=== PATIENT | male | born 1955 | race Caucasian/White ===

== ENCOUNTER 2020-02-10 11:38 | Emergency (ER) | payer MEDICARE, MEDICAID, OTHER, SELFPAY ==
--- NOTE | 2020-02-10 11:40 | ED.GENADUL_ITS ---
Discharge Plan Disposition Patient Disposition: HOME Condition: Stable Discharge Details Clinical Impression: Boxer's fracture Primary Care Provider: Cherrie Franks ED Provider: Christi Ortega Home Meds and New Rx's Prescriptions: Continued atorvastatin 40 mg tablet 40 mg PO DAILY RF: 0 morphine 30 mg Tablet Extended Release 30 mg PO BID RF: 0 omeprazole 40 mg Capsule,Delayed Release(Dr/Ec) 40 mg PO BID RF: 0 lisinopril 10 mg Tablet 5 mg PO BID RF: 0 Discharge Instructions Instructions: Boxer Fracture (ED) Additional Instructions: Rest, ice, and elevate the affected area as much as possible. Take your morphine that you have at home as needed and directed for pain. You can follow-up with an orthopedist here or at [facility] for reevaluation in the next 1 to 2 weeks. Return immediately to the emergency department if you develop any worsening or new concerning symptoms. Referrals: Spencer Park MD [ [facility] STAFF PHYSICIAN] - Discharge Data Discharge Date/Time-TO BE ENTERED AT DEPARTURE: 02/10/20 14:07 Discharge Physician: Christi Ortega Medical Decision Making 64-year-old male presents with right hand pain after fall onto his right hand 2 days ago while taking his dog out. He has edema, ecchymosis and tenderness palpation overlying right fourth and fifth metacarpals. Suspect fracture. No deformity. Neurovascular intact. He has an old right ulnar ulnar styloid abrasion and swelling which family states is not new. Patient referred for x-ray which confirms right fifth metacarpal fracture. Ulnar gutter splint placed at bedside. Daughter states he will f/u with [facility] ortho. Pt declined sling. Medical Records Medical records reviewed: Yes I reviewed the patient's medical records. Imaging Data Radiologic Study: Radiologist's impression: XR HAND RT COMPLETE CLINICAL HISTORY: fall. TECHNIQUE: 2D digital imaging was performed. COMPARISON: No exams were available for comparison FINDINGS: There is an oblique fracture of the base of the 5th metacarpal. Mild displacement. No other fractures. Adjacent foci of the hamate appears unremarkable/intact. No radiopaque foreign body. No osseous lesions. De generative changes at the metacarpophalangeal joint of the thumb are incidentally noted. IMPRESSION: Fifth metacarpal fracture XR WRIST RT COMPLETE CLINICAL HISTORY: fall. TECHNIQUE: 2D digital imaging was performed. COMPARISON: No exams were available for comparison FINDINGS: There is a fracture of the base of the 5th metacarpal, seen in the peripheral aspect of the field of view here. No fractures of the carpal row bones nor carpal dislocation. No significant ulnar variance. IMPRESSION: Fifth metacarpal fracture. HPI General Mode of arrival: ambulatory . Date/Time Provider Initiated Documentation: 02/10/20 11:40 . Limitations to Documentation: no limitations . Information obtained by: patient . HPI Narrative: Patient is a 64-year-old male who presents with right hand pain after fall onto his right hand while taking his dog out 2 days ago. Daughter states patient has had continued pain since then. He chronically takes morphine for chronic back pain and she states this has not been helping him. He continues to have pain and swelling. Denies any other injuries. Related Data Home Medications Medication Instructions Recorded Confirmed atorvastatin 40 mg PO DAILY 02/10/20 02/10/20 lisinopril 5 mg PO BID 02/10/20 02/10/20 morphine 30 mg PO BID 02/10/20 02/10/20 omeprazole 40 mg PO BID 02/10/20 02/10/20 Allergies Allergy/AdvReac Type Severity Reaction Status Date / Time Penicillins Allergy Hives Unverified 02/10/20 11:51 venlafaxine [From Effexor] AdvReac Psychosis Unverified 02/10/20 11:51 Review of Systems All systems reviewed & are unremarkable except as noted in HPI and below Constitutional Constitutional: Reports as per HPI, Denies chills and Denies fever(s) Eyes Eyes: Denies blurry vision ENT Ears, Nose, Mouth, and Throat: Denies dizziness, Denies sore throat and Denies throat swelling Cardiovascular Cardiovascular: Denies chest pain and Denies dyspnea Respiratory Respiratory: Denies cough and Denies dyspnea Gastrointestinal Gastrointestinal: Denies abdominal pain, Denies diarrhea and Denies vomiting Genitourinary Genitourinary: Denies hematuria and Denies dysuria Musculoskeletal Musculoskeletal: Denies back pain and Denies numbness Integumentary/Breasts Skin/Breast: Denies lesions and Denies rash Neurologic Neurologic: Denies dizziness, Denies localized weakness and Denies numbness Allergic/Immunologic Allergic/Immunologic: Denies throat swelling [facility] Medical History (Updated 02/10/20 @ 13:55 by Christi Ortega DO) Chronic back pain Social History Smoking/Tobacco Use Status: Current every day Tobacco Type: cigarettes Smoking risk assessment performed?: Yes Alcohol Intake: never Drug use: Daily Substance use type: marijuana Do you feel safe at home: Yes Do you feel safe in your relationship?: Yes Exam Const General: cooperative and no acute distress HENMT Head: normal to inspection Face and sinus: normal facial exam Eyes General: appearance normal, both eyes and all related structures EOM: EOM intact bilaterally Neck Neck: normal visual inspection and No submandibular swelling Lymphatic: no lymphadenopathy noted Chest Chest: normal inspection of the chest and no tenderness Resp Effort & Inspection: normal respiratory effort and able to speak in complete sentences Auscultation: clear to auscultation bilaterally Cardio Rate: regular rate Rhythm: regular rhythm GI Inspection: normal to inspection Palpation: soft, not firm, not rigid and nontender Auscultation: normal bowel sounds Skin General skin exam: no rashes or lesions noted Neuro General: patient alert, patient awake and patient oriented x3 Cognition: normal cognition Speech: speech normal Motor: muscle tone normal throughout Sensory Exam: no sensory deficits noted Extrem Hand/finger images: 1. Tenderness to palpation, edema and ecchymosis noted to area overlying fourth and fifth metacarpals. 2. There is an old appearing healing circular 1 x 1 cm abrasion to the right medial distal forearm. The right ulnar styloid is chronically edematous per patient and daughter. No deformity. Psych Appearance: grossly normal Mental Status: mental status grossly normal Speech and Movement: speech and movement normal Affect: normal affect Procedures Orthopedic Splinting/Casting Injury #1: Side: right Upper Extremity Injury Location: hand Upper Extremity Immobilizer: ulnar gutter
[2020-02-10 11:45] VITALS: BP 133/86; PULSE 84; RESP 18; TEMP 36.6; O2SAT 96
--- NOTE | 2020-02-10 11:45 | DI.RAD_ITS ---
EXAM: XR WRIST RT COMPLETE CLINICAL HISTORY: fall. TECHNIQUE: 2D digital imaging was performed. COMPARISON: No exams were available for comparison FINDINGS: There is a fracture of the base of the 5th metacarpal, seen in the peripheral aspect of the field of view here. No fractures of the carpal row bones nor carpal dislocation. No significant ulnar varian ce. IMPRESSION: Fifth metacarpal fracture. DATA REPOSITORY: RADIATION DOSE DELIVERED:
--- NOTE | 2020-02-10 11:45 | DI.RAD_ITS ---
EXAM: XR HAND RT COMPLETE CLINICAL HISTORY: fall. TECHNIQUE: 2D digital imaging was performed. COMPARISON: No exams were available for comparison FINDINGS: There is an oblique fracture of the base of the 5th metacarpal. Mild displacement. No other fractur es. Adjacent foci of the hamate appears unremarkable/intact. No radiopaque foreign body. No osseou s lesions. Degenerative changes at the metacarpophalangeal joint of the thumb are incidentally noted . IMPRESSION: Fifth metacarpal fracture DATA REPOSITORY: RADIATION DOSE DELIVERED:
== END 2020-02-10 14:07 | disposition home or self-care (01) ==
PROVIDERS: Emergency Provider Physician Assistant; PCP Student in an Organized Health Care Education/Training Program
DX: S62.316A Displaced fracture of base of fifth metacarpal bone, right hand, initial encounter for closed fracture (principal); W18.39XA Other fall on same level, initial encounter
CPT/HCPCS: 26600; 73110; 73130

== ENCOUNTER 2021-01-19 15:42 | Emergency (ER) | payer MEDICARE, MEDICAID, OTHER, SELFPAY ==
[2021-01-19 16:12] VITALS: BP 134/80; PULSE 78; RESP 16; TEMP 37.1; O2SAT 95
--- NOTE | 2021-01-19 17:35 | ED.GENADUL_ITS ---
Discharge Plan Disposition Patient Disposition: HOME Condition: Stable Discharge Details Clinical Impression: Cellulitis of finger of left hand Primary Care Provider: Cherrie Franks ED Provider: Mehrdad Lim Home Meds and New Rx's Prescriptions: New sulfamethoxazole-trimethoprim [Bactrim DS] 800-160 mg tablet 1 tab PO BID Qty: 20 RF: 0 Continued atorvastatin 40 mg tablet 40 mg PO DAILY RF: 0 morphine 30 mg Tablet Extended Release 30 mg PO BID RF: 0 omeprazole 40 mg Capsule,Delayed Release(Dr/Ec) 40 mg PO BID RF: 0 lisinopril 10 mg Tablet 5 mg PO BID RF: 0 Discharge Instructions Instructions: Cellulitis (ED) Additional Instructions: Bactrim as directed. Continue warm soaks as tolerated. Change antibiotic dressing daily. I cannot personally see any signs of a foreign body. If you are not improving with conservative measures then you may need to see a general surgeon for further exploration of your infected finger. Please watch for new or worsening symptoms and return to the ER for any concerns. Otherwise I recommend following up with your primary care provider in the next 3 days for wound reevaluation Medical Decision Making 65-year-old gentleman, [id number], presents for a left middle finger infection, possible splinter. He removed 2 small piece of the splinter already. At this time I do not see any obvious foreign body. Discussed limitations of x-ray when looking for a wooden foreign body, because of this patient declines x-ray. No evidence of fever, septic joint, tenosynovitis, lymphangitic s treaking. No obvious abscess. No evidence of felon. Plan is to update tetanus now. We discussed strict discharge and return precautions. Will give will give first dose of Bactrim now and provide a prescription. Recommend a wicking salve [id number] as well as warm compresses. We did discuss if he is not improving with conservative measures he may need to be evaluated by a surgeon for deeper incision and exploration of potential foreign body. Patient comfortable this plan and has no additional questions or concerns. Medical Records Medical records reviewed: Yes I reviewed the patient's medical records. HPI General Mode of arrival: ambulatory . Date/Time Provider Initiated Documentation: 01/19/21 17:33 . Limitations to Documentation: no limitations . Information obtained by: patient . HPI Narrative: This is a 65-year-old gentleman, [id number], presenting to the ER for evaluation of a left hand middle finger infection. Patient states that he was burning brush 2-3 days ago, believes he sustained a splinter with oak. He denies any other injury, numbness, tingling, weakness, fever. He is unaware of the tetanus status. Patient states that he picked at the area, squeezed the area, and was able to remove 2 small pieces of a sliver. He is unaware if there is any more left but now the area has become painful, red, infected. Related Data Home Medications Medication Instructions Recorded Confirmed atorvastatin 40 mg PO DAILY 02/10/20 01/19/21 lisinopril 5 mg PO BID 02/10/20 01/19/21 morphine 30 mg PO BID 02/10/20 01/19/21 omeprazole 40 mg PO BID 02/10/20 01/19/21 sulfamethoxazole-trimethoprim 1 tab PO BID #20 tab 01/19/21 [Bactrim DS] Previous Rx's Medication Instructions Recorded sulfamethoxazole-trimethoprim 1 tab PO BID #20 tab 01/19/21 [Bactrim DS] Allergies Allergy/AdvReac Type Severity Reaction Status Date / Time Penicillins Allergy Hives Unverified 01/19/21 16:19 venlafaxine [From Effexor] AdvReac Psychosis Unverified 01/19/21 16:19 General Stated Complaint: Laceration HEATHER: 4 Review of Systems Constitutional Constitutional: Denies fever(s) and Denies weakness Musculoskeletal Musculoskeletal: Denies arthralgias, Denies numbness, Reports stiffness and Denies tingling Integumentary/Breasts Skin/Breast: Reports erythema Neurologic Neurologic: Denies numbness, Denies tingling and Denies weakness [facility] Active Problem List Cellulitis of finger of left hand (Acute) Medical History Chronic back pain Social History Smoking/Tobacco Use Status: Current every day Tobacco Type: cigarettes Smoking risk assessment performed?: Yes Alcohol Intake: never Drug use: Daily Substance use type: marijuana Do you feel safe at home: Yes Do you feel safe in your relationship?: Yes Exam Const General: cooperative, healthy appearing, comfortable and no acute distress Orientation: alert and awake HENND Head: normal to inspection, normocephalic and atraumatic Eyes General: appearance normal, both eyes and all related structures Conjunctivae: conjunctivae normal Neck Neck: normal visual inspection, trachea midline and supple Resp Effort & Inspection: normal respiratory effort and able to speak in complete sentences Cardio Rate: regular rate Rhythm: regular rhythm Skin General skin exam: erythema Neuro General: patient alert, patient awake, moves all extremities and no focal motor deficits Cognition: normal cognition Speech: speech normal Gait: normal gait Motor: muscle tone normal throughout Sensory Exam: no sensory deficits noted Extrem General: full ROM and capillary refill normal Hand/finger images: 1. Left hand third digit distal to the PIP joint, there is a shallow wound with localized erythema and mild discomfort to palpation. Full range of motion, 5 out of 5 strength, no drainage, discharge, obvious foreign body. Normal capillary refill and radial pulse. No evidence of tenosynovitis or septic joint Psych Appearance: grossly normal Mental Status: mental status grossly normal Course Vital Signs Vital signs: Vital Signs Temperature 37.1 C 01/19/21 16:12 Pulse 78 01/19/21 16:12 Respiratory Rate 16 01/19/21 16:12 Blood Pressure 134/80 01/19/21 16:12 Pulse Oximetry 95 01/19/21 16:12 Temperature 37.1 C 01/19/21 16:12 Temperature Source Skin 01/19/21 16:12 Pulse 78 01/19/21 16:12 Respiratory Rate 16 01/19/21 16:12 Respiratory Effort Non-Labored 01/19/21 16:12 Blood Pressure 134/80 01/19/21 16:12 Blood Pressure Position Sitting 01/19/21 16:12 Pulse Oximetry 95 01/19/21 16:12 Oxygen Delivery Method Room Air 01/19/21 16:12 Oxygen Flow Rate 0 01/19/21 16:12 Pain Level 6 01/19/21 16:12
[2021-01-19] MEDS: Sulfameth/Trimeth DS TAB 1 TAB PO (17:45)
== END 2021-01-19 18:07 | disposition home or self-care (01) ==
PROVIDERS: Emergency Provider Physician Assistant; PCP Student in an Organized Health Care Education/Training Program
DX: S61.243A Puncture wound with foreign body of left middle finger without damage to nail, initial encounter (principal); L03.012 Cellulitis of left finger; W45.8XXA Other foreign body or object entering through skin, initial encounter
CPT/HCPCS: 90471; 99284; 99283

== ENCOUNTER 2023-05-15 04:09 | Outpatient (CLI) | payer MEDICARE, MEDICAID, OTHER, SELFPAY ==
[2023-05-15 10:11] LABS: Abs Immature Grans 0.01 10^3/uL (0.0-0.06); Absolute Basophil Count 0.02 10^3/uL (0.0-0.2); Absolute Eosinophil Count 0.04 10^3/uL (0.0-0.7); Absolute Lymphocyte Count 1.25 10^3/uL (1.2-3.4); Absolute Monocyte Count 0.43 10^3/uL (0.1-0.8); Absolute Neutrophil Count 3.81 10^3/uL (1.2-6.7); Basophils % 0.4; Eosinophils % 0.7; HCT 40.6 % (40.0-50.0); HGB 13.3 g/dL (13.5-17.5); Immature Grans % 0.2; Lymphocytes % 22.5; MCH 33.1 pg (27.0-33.0); MCHC 32.8 % (32.0-36.0); MCV 101 fL (80-95); MPV 9.4 fL (8.0-11.0); Monocytes % 7.7; Neutrophils % 68.5; Platelet Count 178 10^3/uL (130-400); RBC 4.02 10^6/uL (4.36-5.78); RDW 13.7 % (11.8-14.1); RDW-SD 51.3 fL; WBC 5.56 10^3/uL (4.4-10.8)
[2023-05-15 10:37] LABS: ALT 30 U/L (16-63); AST 29 U/L (15-37); Albumin 3.6 g/dL (3.4-5.0); Alkaline Phosphatase 87 U/L (46-116); Anion Gap 9.9 mmol/L (3-11); BUN 26 mg/dL (7-18); Bilirubin, Total 0.6 mg/dL (0.2-1.0); CO2 27.1 mmol/L (21.0-32.0); CREATININE 0.8 mg/dL (0.70-1.30); Calcium 8.8 mg/dL (8.5-10.1); Chloride 104 mmol/L (98-107); Estimated GFR 95.21 (mL/min/1.73m2); FREE T4 1.36 ng/dL (0.76-1.46); Glucose 120 mg/dL (74-106); Potassium 3.9 mmol/L (3.5-5.1); Sodium 141 mmol/L (136-145); TSH 3.46 uIU/Ml (0.36-3.74); Total Protein 7.8 g/dL (6.4-8.2)
== END 2023-05-15 04:10 | disposition home or self-care (01) ==
LOC: LBO 04:11
PROVIDERS: PCP Student in an Organized Health Care Education/Training Program; Visit Provider Internal Medicine Medical Oncology
DX: Z79.899 Other long term (current) drug therapy (principal); C34.92 Malignant neoplasm of unspecified part of left bronchus or lung
CPT/HCPCS: 36415; 80053; 83735; 84439; 84443; 85025

== ENCOUNTER 2023-05-22 05:19 | Outpatient (CLI) | payer MEDICARE, MEDICAID, SELFPAY ==
[2023-05-22 11:12] LABS: Abs Immature Grans 0.01 10^3/uL (0.0-0.06); Absolute Basophil Count 0.02 10^3/uL (0.0-0.2); Absolute Eosinophil Count 0.04 10^3/uL (0.0-0.7); Absolute Lymphocyte Count 1.51 10^3/uL (1.2-3.4); Absolute Monocyte Count 0.38 10^3/uL (0.1-0.8); Absolute Neutrophil Count 2.96 10^3/uL (1.2-6.7); Basophils % 0.4; Eosinophils % 0.8; HGB 13.9 g/dL (13.5-17.5); Immature Grans % 0.2; Lymphocytes % 30.7; MCH 33.3 pg (27.0-33.0); MCHC 33.1 % (32.0-36.0); MCV 101 fL (80-95); MPV 9.4 fL (8.0-11.0); Monocytes % 7.7; Neutrophils % 60.2; Platelet Count 227 10^3/uL (130-400); RBC 4.17 10^6/uL (4.36-5.78); RDW 13.8 % (11.8-14.1); RDW-SD 51.6 fL; WBC 4.92 10^3/uL (4.4-10.8)
[2023-05-22 11:26] LABS: INR 1.1 (0.9-1.1)
[2023-05-22 11:39] LABS: ALT 28 U/L (16-63); AST 29 U/L (15-37); Albumin 3.8 g/dL (3.4-5.0); Alkaline Phosphatase 89 U/L (46-116); Anion Gap 9.6 mmol/L (3-11); BUN 23 mg/dL (7-18); Bilirubin, Total 0.5 mg/dL (0.2-1.0); CO2 26.4 mmol/L (21.0-32.0); CREATININE 0.9 mg/dL (0.70-1.30); Chloride 103 mmol/L (98-107); Estimated GFR 91.88 (mL/min/1.73m2); FREE T4 1.25 ng/dL (0.76-1.46); Glucose 135 mg/dL (74-106); Magnesium 2.2 mg/dL (1.8-2.4); Potassium 3.8 mmol/L (3.5-5.1); Sodium 139 mmol/L (136-145); TSH 2.17 uIU/Ml (0.36-3.74)
[2023-05-22 11:46] LABS: Calcium 8.9 mg/dL (8.5-10.1)
[2023-05-23 13:26] LABS: HCV RNA Qualitative Undetected (Undetected)
== END 2023-05-22 05:20 | disposition home or self-care (01) ==
PROVIDERS: Family Medicine; Visit Provider Internal Medicine Medical Oncology
DX: K74.60 Unspecified cirrhosis of liver (principal); Z79.899 Other long term (current) drug therapy
CPT/HCPCS: 36415; 80053; 87522; 83735; 84439; 84443; 85025; 85610

== ENCOUNTER 2023-05-29 04:40 | Outpatient (CLI) | payer MEDICARE, MEDICAID, SELFPAY ==
[2023-05-29 11:38] LABS: Abs Immature Grans 0.03 10^3/uL (0.0-0.06); Absolute Basophil Count 0.01 10^3/uL (0.0-0.2); Absolute Eosinophil Count 0.06 10^3/uL (0.0-0.7); Absolute Lymphocyte Count 1.03 10^3/uL (1.2-3.4); Absolute Monocyte Count 0.17 10^3/uL (0.1-0.8); Absolute Neutrophil Count 2.89 10^3/uL (1.2-6.7); Basophils % 0.2; Eosinophils % 1.4; HCT 41.8 % (40.0-50.0); HGB 13.8 g/dL (13.5-17.5); Immature Grans % 0.7; Lymphocytes % 24.6; MCH 33.7 pg (27.0-33.0); MCV 102 fL (80-95); MPV 9.7 fL (8.0-11.0); Monocytes % 4.1; Platelet Count 160 10^3/uL (130-400); RBC 4.09 10^6/uL (4.36-5.78); RDW 13.6 % (11.8-14.1); RDW-SD 51.8 fL; WBC 4.19 10^3/uL (4.4-10.8)
[2023-05-29 12:04] LABS: ALT 26 U/L (16-63); AST 27 U/L (15-37); Albumin 3.3 g/dL (3.4-5.0); Alkaline Phosphatase 78 U/L (46-116); Anion Gap 3.3 mmol/L (3-11); BUN 21 mg/dL (7-18); Bilirubin, Total 0.6 mg/dL (0.2-1.0); CO2 29.7 mmol/L (21.0-32.0); CREATININE 0.9 mg/dL (0.70-1.30); Calcium 8.7 mg/dL (8.5-10.1); Chloride 103 mmol/L (98-107); Estimated GFR 91.88 (mL/min/1.73m2); Glucose 101 mg/dL (74-106); Magnesium 1.6 mg/dL (1.8-2.4); Sodium 136 mmol/L (136-145); Total Protein 7.2 g/dL (6.4-8.2)
== END 2023-05-29 04:41 | disposition home or self-care (01) ==
LOC: LBO 04:40
PROVIDERS: Visit Provider Internal Medicine Medical Oncology
DX: C34.92 Malignant neoplasm of unspecified part of left bronchus or lung
CPT/HCPCS: 36415; 80053; 83735; 84439; 84443; 85025